=== PATIENT | male | born 1995 | race Caucasian/White ===

== ENCOUNTER 2019-03-19 20:44 | Emergency (ER) | payer SELFPAY | END 2019-03-19 21:18 | disposition left against medical advice (07) | LOC: EDSEX 20:48 → EMS 20:48 | DX: Z00.8 Encounter for other general examination (principal); Z53.21 Procedure and treatment not carried out due to patient leaving prior to being seen by health care provider ==

== ENCOUNTER 2025-06-29 21:25 | Inpatient (IN) | payer OTHER ==
[~2025-06-29] VITALS: Ht 170.2 cm; Wt 73.5 kg
[2025-06-29 22:34] LABS: PLATELET COUNT (AUTO) 278 K/uL (150-450); RED BLOOD CELL COUNT(AUTO) 5.24 MIL/uL (4.50-5.90); RED CELL DISTRIBUTION WIDTH 14.2 % (11.5-14.5); WHITE BLOOD COUNT (AUTO) 8.5 K/uL (4.5-11.0)
[2025-06-29 22:41] LABS: CALCIUM, TOTAL 9.6 mg/dL (8.8-10.5); CREATININE 1.04 mg/dL (0.60-1.30); GLOMERULAR FILTR. RATE CALC > 60 mL/min (>60); GLUCOSE,RANDOM 137 mg/dL (70-110); SODIUM SERUM 141 mmol/L (136-145); UREA NITROGEN, BLOOD 8 mg/dL (7-18)
[2025-06-29 22:47] LABS: ASPARTATE AMINOTRANSFERASE 18 U/L (15-37); TOTAL PROTEIN, SERUM 7.7 g/dL (6.4-8.2)
[2025-06-29 22:49] LABS: ALCOHOL, BLOOD (SERUM) < 3 mg/dL (0-10)
[2025-06-29] MEDS: LevETIRAcetam 1,000 MG in DEXTROSE 5%-WATER 100 ML IV ONE (23:09)
[2025-06-29] MEDS ORDERED: POTASSIUM CHL 10 MEQ/WATER 50 ML IV PRN (23:45)
[2025-06-29] MEDS ORDERED: POTASSIUM CHLORIDE 20 MEQ ER TABLET PO PRN (23:45)
[2025-06-29] MEDS ORDERED: ONDANSETRON HCL 4 MG/2 ML VIAL IVP PRN (23:45)
[2025-06-29] MEDS ORDERED: MAGNESIUM HYDROXIDE SUSPENSION 30 ML UDCUP PO PRN (23:45)
[2025-06-29] MEDS ORDERED: LORazepam 2 MG/ML VIAL IVP PRN (23:45)
[2025-06-29] MEDS ORDERED: ACETAMINOPHEN 325 MG TABLET PO PRN (23:45)
[2025-06-30] MEDS: POTASSIUM CHLORIDE 20 MEQ ER TABLET PO ONE (00:20)
[2025-06-30] MEDS: SODIUM CHLORIDE 0.9% 1,000 ML IV ONE (00:21)
[2025-06-30 02:22] VITALS: BP 117/73; PULSE 78; RESP 18; TEMP 98.4; O2SAT 96
[2025-06-30 08:30] VITALS: BP 114/78; PULSE 85; RESP 18; TEMP 97.7; O2SAT 100
[2025-06-30] MEDS: FAMOTIDINE 20 MG TABLET PO SCH (08:45)
[2025-06-30] MEDS ORDERED: LEVE-71 PO (08:56)
[2025-06-30 11:43] LABS: CALCIUM, TOTAL 8.5 mg/dL (8.8-10.5); CREATININE 0.87 mg/dL (0.60-1.30); GLOMERULAR FILTR. RATE CALC > 60 mL/min (>60); GLUCOSE,RANDOM 113 mg/dL (70-110); SODIUM SERUM 141 mmol/L (136-145); UREA NITROGEN, BLOOD 9 mg/dL (7-18)
[2025-06-30 12:30] VITALS: BP 119/72; PULSE 103; RESP 18; TEMP 97.7; O2SAT 96
[2025-06-30 15:19] LABS: APPEARANCE,URINE CLEAR (CLEAR); GLUCOSE, URINE (UA) NEGATIVE (NEGATIVE); LEUKOCYTE ESTERASE ,URINE NEGATIVE (NEGATIVE); NITRATE,URINE NEGATIVE (NEGATIVE); OCCULT BLOOD,URINE NEGATIVE (NEGATIVE); PH,URINE DRUG SCREEN 6.0 (5.0-8.0); SPECIFIC GRAVITIY, URINE 1.030 (1.003-1.030)
[2025-06-30 15:25] LABS: ALCOHOL, URINE DRUG SCREEN NEGATIVE (NEGATIVE); AMPHET/METH SCREEN,URINE POSITIVE (NEGATIVE); BARBITURATE SCREEN, URINE NEGATIVE (NEGATIVE); CANNABINOID SCREEN,URINE NEGATIVE (NEGATIVE); COCAINE SCREEN,URINE NEGATIVE (NEGATIVE); METHADONE SCREEN, URINE NEGATIVE (NEGATIVE)
[2025-06-30 16:06] VITALS: BP 118/73; PULSE 78; RESP 18; TEMP 97.8; O2SAT 98
[2025-06-30 20:10] VITALS: BP 120/81; PULSE 79; RESP 18; TEMP 98.1; O2SAT 98
[2025-06-30 23:44] VITALS: BP 116/66; PULSE 61; RESP 18; TEMP 97.8; O2SAT 98
[2025-07-01 04:23] VITALS: BP 115/71; PULSE 62; RESP 18; TEMP 97.7; O2SAT 96
[2025-07-01 06:09] LABS: PLATELET COUNT (AUTO) 250 K/uL (150-450); RED BLOOD CELL COUNT(AUTO) 4.89 MIL/uL (4.50-5.90); RED CELL DISTRIBUTION WIDTH 14.2 % (11.5-14.5); WHITE BLOOD COUNT (AUTO) 6.3 K/uL (4.5-11.0)
[2025-07-01 06:20] LABS: CALCIUM, TOTAL 8.8 mg/dL (8.8-10.5); CREATININE 0.75 mg/dL (0.60-1.30); GLOMERULAR FILTR. RATE CALC > 60 mL/min (>60); GLUCOSE,RANDOM 90 mg/dL (70-110); SODIUM SERUM 139 mmol/L (136-145); UREA NITROGEN, BLOOD 9 mg/dL (7-18)
[2025-07-01 07:45] VITALS: BP 116/75; PULSE 64; RESP 18; TEMP 97.9; O2SAT 97
[2025-07-01 11:12] VITALS: BP 120/63; PULSE 88; RESP 18; TEMP 97.5; O2SAT 98
[2025-07-01 15:46] VITALS: BP 135/80; PULSE 74; RESP 18; TEMP 98.6; O2SAT 100
== END 2025-07-01 16:00 | disposition home or self-care (01) | DRG 53 ==
LOC: EMS 21:25 → EDH 23:40 → 5N 06-30 02:20
PROVIDERS: ADMIT Internal Medicine; ATTEND Internal Medicine
DX: G40.909 Epilepsy, unspecified, not intractable, without status epilepticus (principal); E87.6 Hypokalemia; Z91.148 Patient's other noncompliance with medication regimen for other reason
CPT/HCPCS: 70450; 80048; 80076; 80307; 81003; 85025; 96361; 96374; 99285; G0378; G0480; J0712; J7030; J7060; 36415-L1; 36415-TC